=== PATIENT | male | born 1990 | race Two or more races ===

== ENCOUNTER 2020-07-26 07:39 | Emergency (ER) | payer OTHER ==
[~2020-07-26] VITALS: Ht 172.7 cm; Wt 95.3 kg
[2020-07-26 07:43] VITALS: BP 135/101
--- NOTE | 2020-07-26 07:48 | NUR ---
The patient is bibra for c/o r ear pain x 2 days. Rates pain 10/10. Denies ringing in the ear. Denies being [place]. Will continue to monitor the patient.
[2020-07-26] MEDS ORDERED: IBUPROFEN 400 MG TABLET ONE (07:52)
[2020-07-26] MEDS ORDERED: CIPR7.5D EACH EAR (07:57)
[2020-07-26] MEDS ORDERED: IBUPROFEN 400 MG TABLET PO ONE (08:00)
--- NOTE | 2020-07-26 08:02 | NUR ---
Patient discharged to home in stable condition. Written and verbal after care instructions given. Patient verbalizes understanding of instruction. The patient left ER in stable condition.
== END 2020-07-26 08:05 | disposition home or self-care (01) ==
LOC: ER 07:41
DX: H60.91 Unspecified otitis externa, right ear (principal); F10.10 Alcohol abuse, uncomplicated; Y90.9 Presence of alcohol in blood, level not specified; Z59.0 Homelessness